=== PATIENT | male | born 1990 | race Caucasian/White ===

== ENCOUNTER 2017-07-27 13:52 | Emergency (ER) | payer SELFPAY ==
--- NOTE | 2017-07-27 14:38 | ED ---
Laceration/Wound HPI - HPI Summary HPI Summary: 26 year old male presents with complains of abrasion on his right upper chest. - History of Current Complaint Stated Complaint: LACERATION Time Seen by Provider: 07/27/17 14:38 Hx Obtained From: Patient Onset/Duration: Sudden Onset Onset Severity: Moderate Current Severity: Moderate Associated Signs & Symptoms: Negative - Allergy/Home Medications Allergies/Adverse Reactions: Allergies Allergy/AdvReac Type Severity Reaction Status Date / Time No Known Allergies Allergy Verified 10/02/16 10:42 PMH/Surg Hx/FS Hx/Imm Hx Previously Healthy: Yes Cardiovascular History: Denies: Hx Hypertension Respiratory History: Denies: Hx Asthma Infectious Disease History: No Infectious Disease History: Denies: Traveled Outside the [place] in Last 30 Days - Family History Known Family History: Positive: Hypertension - Social History Alcohol Use: Weekly Substance Use Type: Reports: None Smoking Status (MU): Unknown if Ever Smoked Type: Smokeless Tobacco Review of Systems Constitutional: Negative Eyes: Negative ENT: Negative Cardiovascular: Negative Respiratory: Negative Gastrointestinal: Negative Genitourinary: Negative Musculoskeletal: Negative Positive: Other - right upper chest abrasion Neurological: Negative All Other Systems Reviewed And Are Negative: Yes Physical Exam Triage Information Reviewed: Yes Vital Signs On Initial Exam: Initial Vitals Temp Pulse Resp Pulse Ox 36.2 C 91 18 100 07/27/17 14:16 07/27/17 14:16 07/27/17 14:16 07/27/17 14:16 Skin: Positive: Other - right upper chest abrasion Diagnostics - Vital Signs Vital Signs Temp Pulse Resp BP Pulse Ox 07/27/17 14:34 176/101 07/27/17 14:16 36.2 C 91 18 100 - Laboratory Lab Statement: Any lab studies that have been ordered have been reviewed, and results considered in the medical decision making process. Laceration Repair Course/Dx - Clinical Impression Provider Diagnoses: Abrasion Discharge - Discharge Plan Condition: Stable Disposition: HOME Prescriptions: Sulfamethox/Trimethoprim DS* [Bactrim DS 800/160 TAB*] 1 tab PO BID #14 tab Patient Education Materials: Abrasion (ED) Referrals: No Primary Care Phys,NOPCP [Primary Care Provider] -
[2017-07-27] MEDS ORDERED: Tetan/Diph/Pertus SYR(Tdap)* 0.5 ML SYR(BOOSTRIX) use SYR IM ONE (14:42)
== END 2017-07-27 15:02 | disposition home or self-care (01) ==
LOC: UCEAST 13:52
DX: S20.311A Abrasion of right front wall of thorax, initial encounter (principal); X58.XXXA Exposure to other specified factors, initial encounter; Y93.9 Activity, unspecified; Y92.9 Unspecified place or not applicable; Z23 Encounter for immunization
CPT/HCPCS: 90471; 90715; 99212; G0463

== ENCOUNTER 2018-03-17 18:48 | Emergency (ER) | payer BC ==
[2018-03-17 19:19] VITALS: BP 156/108
[2018-03-17] MEDS ORDERED: Ketorolac INJ* 30 MG/ML 1 ML VIAL IM ONE (19:25)
--- NOTE | 2018-03-17 19:29 | ED ---
Throat Pain/Nasal Congestion - HPI Summary HPI Summary: 27-year-old male presents to sore throat for the past 2 days. He states it is difficult to swallow. He able to drink liquids. He denies any shortness breath. He admits occasional cough. He admits to sinus congestion. He also admits to postnasal drip. He denies any bowel pain. No nausea and vomiting. He admits to subjective fevers. He took a dose Tylenol earlier today. He denies any history of strep. No history mono. He denies any fatigue. <Whitney Martel - Last Filed: 03/17/18 20:18> <Pato Tolliver - Last Filed: 03/17/18 21:04> - History of Current Complaint Chief Complaint: UCRespiratory Time Seen by Provider: 03/17/18 19:21 - Allergies/Home Medications Allergies/Adverse Reactions: Allergies Allergy/AdvReac Type Severity Reaction Status Date / Time No Known Allergies Allergy Verified 10/02/16 10:42 PMH/Surg Hx/FS Hx/Imm Hx Endocrine/Hematology History: Denies: Hx Anticoagulant Therapy Cardiovascular History: Denies: Hx Hypertension Respiratory History: Denies: Hx Asthma Infectious Disease History: No Infectious Disease History: Denies: Traveled Outside the [place] in Last 30 Days - Family History Known Family History: Positive: Hypertension - Social History Alcohol Use: Weekly Substance Use Type: Reports: None Smoking Status (MU): Light Every Day Tobacco Smoker Type: Smokeless Tobacco <Whitney Martel - Last Filed: 03/17/18 20:18> Review of Systems Positive: Fever, Chills. Negative: Fatigue Positive: Sore Throat Negative: Chest Pain Negative: Shortness Of Breath All Other Systems Reviewed And Are Negative: Yes <Whitney Martel - Last Filed: 03/17/18 20:18> Physical Exam Triage Information Reviewed: Yes Vital Signs On Initial Exam: Initial Vitals Temp Pulse Resp BP Pulse Ox 100.1 F 111 18 156/108 98 03/17/18 19:14 03/17/18 19:14 03/17/18 19:14 03/17/18 19:14 03/17/18 19:14 Vital Signs Reviewed: Yes Appearance: Positive: Well-Appearing Skin: Positive: Warm, Dry Head/Face: Positive: Normal Head/Face Inspection Eyes: Positive: Normal, EOMI, DEDE, Conjunctiva Clear ENT: Positive: Pharyngeal erythema, Tonsillar swelling, Uvula midline, Other - soft palate symmetric. Negative: Tonsillar exudate, Trismus, Muffled voice Neck: Positive: Supple, Nontender, No Lymphadenopathy Respiratory/Lung Sounds: Positive: Clear to Auscultation, Breath Sounds Present Cardiovascular: Positive: Normal, RRR Abdomen Description: Positive: Nontender, Soft Bowel Sounds: Positive: Present Musculoskeletal: Positive: Normal Neurological: Positive: Normal Psychiatric: Positive: Normal <Whitney Martel - Last Filed: 03/17/18 20:18> Vital Signs On Initial Exam: Initial Vitals Temp Pulse Resp BP Pulse Ox 100.1 F 111 18 156/108 98 03/17/18 19:14 03/17/18 19:14 03/17/18 19:14 03/17/18 19:14 03/17/18 19:14 <Pato Tolliver - Last Filed: 03/17/18 21:04> Diagnostics - Vital Signs Vital Signs Temp Pulse Resp BP Pulse Ox 03/17/18 19:14 100.1 F 111 18 156/108 98 <Whitney Martel - Last Filed: 03/17/18 20:18> - Vital Signs Vital Signs Temp Pulse Resp BP Pulse Ox 03/17/18 19:14 100.1 F 111 18 156/108 98 - Laboratory Lab Results: Lab Results 03/17/18 Range/Units 19:27 Group A Strep Rapid Negative (Negative) Lab Statement: Any lab studies that have been ordered have been reviewed, and results considered in the medical decision making process. <Pato Tolliver - Last Filed: 03/17/18 21:04> EENT Course/Dx - Course Course Of Treatment: 27-year-old male presents to sore throat for the past 2 days. He states it is difficult to swallow. He able to drink liquids. He denies any shortness breath. He admits occasional cough. He admits to sinus congestion. He also admits to postnasal drip. He denies any bowel pain. No nausea and vomiting. He admits to subjective fevers. He took a dose Tylenol earlier today. He denies any history of strep. No history mono. He denies any fatigue. On exam pharynx erythematous. Tonsillar swelling present. No exudate. Soft palate symmetric. Uvula midline. strept neg. will treat with decardon and magic mouthwash. will have follow up with primary as blood pressure is elevated at this visit. repeat bp 148/88 manual. patient understand and agrees with plan. - Differential Diagnoses Differential Diagnoses: Pharyngitis, Tonsilitis, URI/Bronchitis <Whitney Martel - Last Filed: 03/17/18 20:18> <Pato Tolliver - Last Filed: 03/17/18 21:04> - Diagnoses Provider Diagnoses: Pharyngitis, Elevated blood pressure reading Discharge - Sign-Out/Discharge Documenting (check all that apply): Discharge/Admit/Transfer - Billing Disposition and Condition Condition: GOOD Disposition: Home <Whitney Martel - Last Filed: 03/17/18 20:18> - Billing Disposition and Condition Condition: GOOD Disposition: Home <Pato Tolliver - Last Filed: 03/17/18 21:04> - Discharge Plan Condition: Good Disposition: HOME Prescriptions: Dexamethasone TAB* [Decadron TAB*] 4 mg PO DAILY #5 tab Magic Mouth Was-RIANA/MAAL/LIDO* 5 ml SWISH SPIT QID #100 ml Patient Education Materials: Pharyngitis (ED) Forms: *Work Release Referrals: [facility] [facility] [place] [facility] [Outside] Additional Instructions: Magic mouthwash 5ml swish and spit can use 4x a day Take steroid once a day for 5 days Take Tylenol or ibuprofen for pain every 6 hours Can gargle salt water Can use cough drops or products such as cloraseptic spray Establish care with primary care physician to follow up as blood pressure is elevated at this visit Return to ED if develop fever does not respond to Tylenol or ibuprofen, inability to swallow, or difficulty breathing or any new or worsening symptoms Per institutional requirements, I have reviewed the chart, however, I was not consulted specifically or made aware of this patient by the above midlevel provider. I did not personally evaluate, interact with , or disposition this patient.
== END 2018-03-17 19:55 | disposition home or self-care (01) ==
LOC: UCEAST 18:48
DX: J02.9 Acute pharyngitis, unspecified (principal); R03.0 Elevated blood-pressure reading, without diagnosis of hypertension; F17.290 Nicotine dependence, other tobacco product, uncomplicated
CPT/HCPCS: 87651; 96372; 99211; G0463; J1885